=== PATIENT | female | born 1995 | race Two or more races ===

== ENCOUNTER 2017-10-19 03:37 | Emergency (ER) | payer SELFPAY ==
--- NOTE | 2017-10-19 05:51 | ED PDOC ---
HPI: Psych/Substance Abuse Time Seen by Provider: 10/19/17 03:56 Chief Complaint (Nursing): Alcohol Ingestion Chief Complaint (Provider): Alcohol Ingestion History Per: EMS History/Exam Limitations: intoxication Onset/Duration Of Symptoms: Hrs (prior to arrival) Current Symptoms Are (Timing): Still Present Additional Complaint(s): Mere Rausch is a 22 year old female with reportedly no past medical history, who was brought to the ER by EMS for evaluation, s/p finding her sleeping in a stairwell of a building she does not live in. Patient is unable to give history as to why she is there but admits to drinking alcohol. She denies taking any medications for any chronic illnesses. Due to patient's intoxicated state, no history or review of systems was obtainable. PMD: none provided Past Medical History Reviewed: Historical Data, Nursing Documentation, Vital Signs, Unable To Obtain (unreliable and barely obtainable) Vital Signs: Last Vital Signs Temp 97.3 F L 10/19/17 03:48 Pulse 67 10/19/17 03:48 Resp 18 10/19/17 03:48 BP 121/80 10/19/17 03:48 Pulse Ox 97 10/19/17 03:48 - Medical History PMH: No Chronic Diseases - Social History Alcohol: Other (currently intoxicated) Drugs: Denies - Allergies Allergies/Adverse Reactions: Allergies Allergy/AdvReac Type Severity Reaction Status Date / Time No Known Allergies Allergy Verified 10/19/17 03:48 Review of Systems ROS Statement: Except As Marked, All Systems Reviewed And Found Negative Review Of Systems: ROS cannot be obtained secondary to pt's inabilty to answer questions. (patient's intoxicated state) Physical Exam - Reviewed Nursing Documentation Reviewed: Yes Vital Signs Reviewed: Yes - Physical Exam Appears: Negative for: Well ((+) severely lethargic, (+) arousable to voice) ENT: Positive for: Other (superficial abrasion to chin) Neurologic/Psych: Positive for: Other (slurred speech, unsteady gait). Negative for: Alert (unable to maintain alertness) - ECG O2 Sat by Pulse Oximetry: 97 (RA) Pulse Ox Interpretation: Normal Medical Decision Making Medical Decision Making: Time: 4:03 Impression: intoxication, signs of head trauma, rule out traumatic brain injury Plan: --CT Head -- Alcohol Serum --Drug Screen --HCG, Qualitative Serum CT Head: FINDINGS: Brain: Minimal atrophy. No intracranial hemorrhage. No mass. No definite edema. Ventricles: No hydrocephalus. Bones/joints: No acute fracture. Soft tissues: Unremarkable. Sinuses: Scattered minimal to mild mucosal thickening. Mastoid air cells: No mastoid effusion. Orbits: Unremarkable as visualized. IMPRESSION: 1. No definite acute intracranial abnormality. 2. Incidental/non-acute findings are described above. Scribe Attestation: Documented by Jazz Aranda acting as a scribe for Alison Massey MD. Scribe Attestation: All medical record entries made by the Scribe were at my direction and personally dictated by me. I have reviewed the chart and agree that the record accurately reflects my personal performance of the history, physical exam, medical decision making, and the department course for this patient. I have also personally directed, reviewed, and agree with the discharge instructions and disposition. Disposition - Disposition Forms: [employer] (Bulgarian)
[2017-10-19 06:55] LABS: BARBITURATES, UR NEGATIVE (NEGATIVE); BENZODIAZEPINES, UR NEGATIVE (NEGATIVE); OPIATES, UR NEGATIVE (NEGATIVE); PHENCYCLIDINE, UR NEGATIVE (NEGATIVE)
--- NOTE | 2017-10-19 07:05 | ED PDOC ---
- ECG O2 Sat by Pulse Oximetry: 97 (RA) Medical Decision Making Medical Decision Making: recd on endorsement at 7a pending sobriety and re-eval 10am awake, ambulating c/o mild headache, feeling hungover, tylenol ordered Gait stable and speech clear, ok for discharge from ED s/p monitoring for 6.5+ hrs Disposition Counseled Patient/Family Regarding: Studies Performed, Diagnosis, Need For Followup - Clinical Impression Clinical Impression: Alcohol abuse with intoxication, Head injury - POA Present On Arrival: Falls Or Trauma - Disposition Disposition: Routine/Home Disposition Time: 10:02 Condition: STABLE Additional Instructions: Drink plenty of fluids. Recommend alcohol in moderation only. Instructions: Alcohol Use - When Is Drinking a Problem?, Closed Head Injury (DC ), Effects of Alcohol on Your Health Forms: [facility] (Algerian)
[2017-10-19 09:47] VITALS: BP 112/54; PULSE 96; RESP 13; TEMP 98.2
[2017-10-19 10:02] VITALS: O2SAT 97
--- NOTE | 2017-10-19 10:59 | CT ---
PROCEDURE: CT HEAD WITHOUT CONTRAST. HISTORY: INTOX ams abrasion head COMPARISON: None available. TECHNIQUE: Axial computed tomography images were obtained through the head/brain without intravenous contrast. Radiation dose: Total exam DLP = 680.3 mGy-cm. This CT exam was performed using one or more of the following dose reduction techniques: Automated exposure control, adjustment of the mA and/or kV according to patient size, and/or use of iterative reconstruction technique. FINDINGS: HEMORRHAGE: No intracranial hemorrhage. BRAIN: No mass effect or edema. No atrophy or chronic microvascular ischemic changes. VENTRICLES: Unremarkable. No hydrocephalus. CALVARIUM: Unremarkable. PARANASAL SINUSES: Opacification of a few ethmoid air cells. MASTOID AIR CELLS: Unremarkable as visualized. No inflammatory changes. OTHER FINDINGS: None. IMPRESSION: No acute intracranial pathology.
== END 2017-10-19 10:13 | disposition home or self-care (01) ==
LOC: H.ER 03:37
DX: F10.129 Alcohol abuse with intoxication, unspecified (principal); S09.90XA Unspecified injury of head, initial encounter; W19.XXXA Unspecified fall, initial encounter; Y92.89 Other specified places as the place of occurrence of the external cause
CPT/HCPCS: 70450; 81025; 84703; 99285; G0480